=== PATIENT | female | born 1995 | race African-American/Black ===

== ENCOUNTER 2017-12-12 23:41 | Emergency (ER) | payer OTHER ==
[~2017-12-12] VITALS: Ht 170.2 cm; Wt 65.8 kg
--- NOTE | ~2017-12-12 | EKG ---
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
[~2017-12-12 23:41] MED LIST: PHENERGAN 25 MG25 M1 PO
[2017-12-13 00:10] LABS: URINE BILIRUBIN NEGATIVE (Negative); URINE BLOOD NEGATIVE (Negative); URINE CLARITY CLEAR; URINE COLOR YELLOW; URINE GLUCOSE-RANDOM* NEGATIVE (Negative); URINE KETONES NEGATIVE (Negative); URINE LEUKOCYTES NEGATIVE (Negative); URINE NITRITE NEGATIVE (Negative); URINE PROTEIN (DIPSTICK) NEGATIVE (Negative); URINE UROBILINOGEN 0.2 E.U./dl (0.2-1.0)
[2017-12-13] MEDS ORDERED: IBUPROFEN 400400 M2 PO (00:48)
[2017-12-13 01:27] VITALS: BP 113/74
== END 2017-12-13 01:30 | disposition home or self-care (01) ==
LOC: ER 23:41
PROVIDERS: Emergency Medicine
DX: M94.0 Chondrocostal junction syndrome [Tietze] (principal); R09.1 Pleurisy